=== PATIENT | female | born 1995 | race Caucasian/White ===

== ENCOUNTER 2018-05-20 10:50 | Emergency (ER) | payer MEDICAID ==
--- NOTE | 2018-05-20 11:09 | ER Document Report ---
ED General - General Chief Complaint: Urinary Frequency Stated Complaint: FLU SYMPTOMS Time Seen by Provider: 05/20/18 10:59 Notes: Patient is a 22-year-old female that presents to the emergency department for chief complaint of cough, runny nose and dysuria. Patient reports has been having cold-like symptoms over the last several days, but then developed dysuria, urinary frequency, nausea and vomiting which is common when she gets UTIs which she apparently gets frequently. She is also concerned that she may be , as commonly she gets UTIs since beginning of her pregnancies. She does have unprotected sex, and is not currently on contraceptive medication or treatments. She denies noting any fevers, chills, night sweats, chest pain, shortness of breath or difficulty breathing associated with these other symptoms. She currently rates her pain as a 2 out of 10 describes it as a mild aching sensation, and burning with urination. Past Medical History: Denies chronic medical conditions Past Surgical History: C-sections x3 Social History: Admits to smoking cigarettes, denies alcohol or drug use. Family History: Reviewed and noncontributory for presenting illness Allergies: Reviewed, see documented allergy list. REVIEW OF SYSTEMS: Other than noted above, the 12 point review of systems was reviewed with the patient and were negative, all pertinent findings are included in the HPI. PHYSICAL EXAMINATION: Vital signs reviewed, nursing noted reviewed. GENERAL: Well-appearing, well-nourished and in no acute distress. HEAD: Atraumatic, normocephalic. EYES: Eyes appear normal, extraocular movements intact, sclera anicteric, conjunctiva are normal. ENT: nares patent, oropharynx clear without exudates. Moist mucous membranes. NECK: Normal range of motion, supple without lymphadenopathy LUNGS: Breath sounds clear to auscultation bilaterally and equal. No wheezes rales or rhonchi. HEART: Regular rate and rhythm without murmurs ABDOMEN: Soft, nontender, normoactive bowel sounds. No rebound, guarding, or rigidity. No masses appreciated. EXTREMITIES: Nontender, good range of motion, no pitting or edema. NEUROLOGICAL: No focal neurological deficits. Moves all extremities spontaneously Motor and sensory grossly intact on exam. PSYCH: Normal mood, normal affect. SKIN: Warm, Dry, normal turgor, no rashes or lesions noted on exposed skin TRAVEL OUTSIDE OF THE [place] IN LAST 30 DAYS: No - Related Data Allergies/Adverse Reactions: No Known Allergies Allergy (Verified 05/20/18 10:54) Past Medical History - Social History Smoking Status: Current Every Day Smoker Chew tobacco use (# tins/day): No Frequency of alcohol use: Occasional Drug Abuse: None Family History: Reviewed & Not Pertinent Patient has suicidal ideation: No Patient has homicidal ideation: No Renal/ Medical History: Denies: Hx Peritoneal Dialysis Past Surgical History: Reports: Hx Section Physical Exam - Vital signs Vitals: Temp Pulse Resp BP Pulse Ox 99.2 F 106 H 16 128/83 H 97 05/20/18 10:57 05/20/18 10:57 05/20/18 10:57 05/20/18 10:57 05/20/18 10:57 Course - Re-evaluation Re-evalutation: Patient seen and examined vital signs reviewed. Laboratory data and imaging were ordered as appropriate for the patient's presenting symptoms and complaint, with consideration of any critical or life threatening conditions that may be associated with their obtained history and exam as noted above. Patient was treated with Pyridium Results were reviewed when available and demonstrated UA consistent with a urinary tract infection, nitrite positive, will send for culture, hCG negative. The patient was re-evaluated and was stable and improved Evaluation was most consistent with UTI, will discharge home with a prescription for Pyridium, and antibiotic with Keflex, patient agreed with plan of care and discharged home. Results were discussed with the patient at this point, after careful consideration I feel that that patient can be discharged from the emergency department, the patient was educated treatments and reasons to return to the emergency department based on their presumed diagnosis as noted above, they were advised to followup with a primary care physician in 2-3 days. Patient was agreeable to plan of care. *Note is created using voice recognition software and may contain spelling, syntax or grammatical errors. Laboratory 05/20/18 10:55 Urine Color MARIAM Urine Appearance SLIGHTLY-CLOUDY Urine pH 7.0 Ur Specific [place] 1.028 Urine Protein 100 H Urine Glucose (UA) NEGATIVE Urine Ketones TRACE H Urine Blood NEGATIVE Urine Nitrite POSITIVE H Urine Bilirubin SMALL H Urine Urobilinogen 4.0 H Ur Leukocyte Esterase MODERATE H Urine WBC (Auto) 151 Urine RBC (Auto) 8 Urine WBC Clumps OCC Squamous Epi Cells Auto 2 Urine Mucus (Auto) MANY Urine Ascorbic Acid NEGATIVE Urine HCG, Qual NEGATIVE - Vital Signs Vital signs: Temp Pulse Resp BP Pulse Ox 98.7 F 91 17 127/96 H 100 05/20/18 12:09 05/20/18 12:09 05/20/18 12:09 05/20/18 12:09 05/20/18 12:09 - Laboratory Laboratory results interpreted by me: 05/20/18 10:55 Urine Protein 100 H Urine Ketones TRACE H Urine Nitrite POSITIVE H Urine Bilirubin SMALL H Urine Urobilinogen 4.0 H Ur Leukocyte Esterase MODERATE H Discharge - Discharge Clinical Impression: UTI (urinary tract infection) Qualifiers: Urinary tract infection type: site unspecified Hematuria presence: with hematuria Qualified Code(s): N39.0 - Urinary tract infection, site not specified URI (upper respiratory infection) Qualifiers: URI type: unspecified URI Qualified Code(s): J06.9 - Acute upper respiratory infection, unspecified Condition: Stable Disposition: HOME, SELF-CARE Instructions: Upper Respiratory Illness ([facility]), Urinary Tract Infection ([facility]) Additional Instructions: Please use the albuterol inhaler every 4 hours as needed for cough and wheezing, and please take the full course of antibiotics prescribed. you can also use the Pyridium to help with the burning. you can take that 3 times a day for 3 days. Prescriptions: RX: Cephalexin Monohydrate [Keflex 500 mg Capsule] 500 mg PO BID 5 Days #10 capsule Phenazopyridine HCl [Pyridium 100 Mg Tablet] 100 mg PO TID #9 tablet Referrals: ZAFAR CELAYA PA [[facility]ESSIONAL] - Follow up as needed
[2018-05-20] MEDS ORDERED: ALBUTEROL SULFATE HFA (90 MCG/PUFF) 8 GM MDI (1 MDI/ER DISP) IH PRN (11:10)
[2018-05-20 11:38] LABS: APPEARANCE,URINE SLIGHTLY-CLOUDY; BILIRUBIN,URINE SMALL (NEGATIVE); COLOR,URINE AMBER; GLUCOSE, URINE NEGATIVE (NEGATIVE); KETONES,URINE TRACE mg/dL (NEGATIVE); LEUKOCYTE ESTERASE,URINE MODERATE (NEGATIVE); NITRITE,URINE POSITIVE (NEGATIVE); PROTEIN,URINE 100 mg/dL (NEGATIVE); URINE SPECIFIC GRAVITY 1.028
[2018-05-20 12:10] VITALS: BP 127/96
== END 2018-05-20 12:26 | disposition home or self-care (01) ==
LOC: ER 10:50
DX: J06.9 Acute upper respiratory infection, unspecified (principal); N39.0 Urinary tract infection, site not specified; R35.0 Frequency of micturition; R05 Cough; R09.89 Other specified symptoms and signs involving the circulatory and respiratory systems; R30.0 Dysuria; F17.210 Nicotine dependence, cigarettes, uncomplicated
CPT/HCPCS: 99283; 87086; 81025; 81001; J3490

== ENCOUNTER 2019-11-01 11:44 | Emergency (ER) | payer MEDICAID ==
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
[2019-11-01] MEDS ORDERED: LIDOCAINE 1% INJ-PF (10 MG/ML) 30 ML SDV INJ ONE (12:32)
[2019-11-01] MEDS ORDERED: METRONIDAZOLE 500 MG TABLET PO ONE (12:32)
[2019-11-01] MEDS ORDERED: CEFTRIAXONE INJ 250 MG VIAL IM ONE (12:32)
[2019-11-01] MEDS ORDERED: AZITHROMYCIN 250 MG TABLET PO ONE (12:32)
[2019-11-01 13:10] LABS: BACTERIA (WET MOUNT) 4+ BACTERIA SEEN; EPITHELIALS (WET MOUNT) 4+ EPITHELIALS SEEN; WBCS (WET MOUNT) 1+ WBCS SEEN; YEAST (WET MOUNT) NO YEAST SEEN
[2019-11-01 13:29] LABS: AMORPHOUS SEDIMENT,URINE 2+ /HPF; APPEARANCE,URINE CLOUDY; BILIRUBIN,URINE NEGATIVE (NEGATIVE); GLUCOSE, URINE NEGATIVE (NEGATIVE); KETONES,URINE NEGATIVE (NEGATIVE); LEUKOCYTE ESTERASE,URINE TRACE (NEGATIVE); NITRITE,URINE NEGATIVE (NEGATIVE); PROTEIN,URINE 100 mg/dL (NEGATIVE); URINE SPECIFIC GRAVITY 1.021
[2019-11-01 13:30] LABS: COLOR,URINE YELLOW
[2019-11-01 13:41] LABS: URINE AMPHETAMINES SCREEN NEGATIVE; URINE BARBITURATES SCREEN NEGATIVE; URINE BENZODIAZEPINES SCREEN NEGATIVE; URINE COCAINE SCREEN NEGATIVE; URINE METHADONE SCREEN NEGATIVE; URINE PHENCYCLIDINE SCREEN NEGATIVE
[2019-11-01 13:42] LABS: URINE MARIJUANA (THC) SCREEN UNCONFIRMED POSITIVE
[2019-11-01 14:03] VITALS: BP 144/91
[2019-11-01 14:47] LABS: CHLAM PCR DETECTED (NOT DETECT)
== END 2019-11-01 14:04 | disposition home or self-care (01) ==
LOC: ER 11:44
DX: T74.21XA Adult sexual abuse, confirmed, initial encounter (principal)
CPT/HCPCS: 99284; 96372; 87210; 81025; 81001; 80307; 87491; 87591; Q0144; J3490 ×2; J0696